=== PATIENT | male | born 1975 | race Caucasian/White ===

== ENCOUNTER 2021-03-16 03:48 | Emergency (ER) | payer SELFPAY ==
[2021-03-16] MEDS ORDERED: Sodium Chloride 0.9% 10 ML Syringe FLUSH PRN (04:00)
[2021-03-16] MEDS ORDERED: Alum Hydrox/Mag Hydrox/Simeth 30 ML, Lidocaine 2% 15 ML PO ONE ×2 (04:00)
[2021-03-16] MEDS ORDERED: Morphine 4 MG/ML Syringe IVPUSH ONE (04:11)
[2021-03-16] MEDS ORDERED: Ondansetron 4 MG/2 ML SDV IVPUSH ONE (04:12)
[2021-03-16] MEDS ORDERED: Sodium Chloride 0.9% 1,000 ML IV ONE (04:12)
[2021-03-16] MEDS ORDERED: Ondansetron 4 MG/2 ML SDV ONE (04:13)
[2021-03-16] MEDS ORDERED: Sodium Chloride 0.9% 1,000 ML ONE (04:13)
[2021-03-16] MEDS ORDERED: Morphine 2 MG/ML SYRINGE ONE (04:17)
[2021-03-16] MEDS ORDERED: Morphine 2 MG/ML SYRINGE IVPUSH ONE (04:18)
--- NOTE | 2021-03-16 04:26 | EDM.PDOC ---
ED HPI GENERAL MEDICAL PROBLEM - General Chief Complaint: General Stated Complaint: ABDOMINAL PAIN Time Seen by Provider: 03/16/21 04:11 Source of Information: Reports: Patient History Limitations: Reports: No Limitations - History of Present Illness INITIAL COMMENTS - FREE TEXT/NARRATIVE: Patient presents with friend for severe epigastric burning abdominal pain started 0200 just a few hours ago. Last bowel movement this previous morning , he has had no vomiting no black stools, no heavy NSAID use, and alcohol use occasionally but no heavy use. Did not eat anything spicey or abnormal to his normal diet. The pain woke him up his deep epigastric "burning" pain radiates to his back. Patient is quite uncomfortable, treatment prior to arrival 2-3 ibuprofen he states. Patient rates his pain severe /10. He is otherwise healthy 45-year-old male with no medical problems and no previous surgeries. Bilateral Upper Abdomen Pain Score (Numeric/FACES): 10 - Related Data Allergies Allergy/AdvReac Type Severity Reaction Status Date / Time No Known Drug Allergies Allergy Other Verified 03/16/21 03:50 Home Meds: Home Meds . [No Known Home Meds] 03/16/21 [History] ED ROS GENERAL - Review of Systems Review Of Systems: See Below Constitutional: Reports: No Symptoms, Diaphoresis. Denies: Fever, Chills HEENT: Reports: No Symptoms Respiratory: Reports: No Symptoms Cardiovascular: Reports: No Symptoms. Denies: Chest Pain, Edema, Syncope Endocrine: Reports: No Symptoms GI/Abdominal: Reports: Abdominal Pain, Nausea. Denies: Constipation, Diarrhea, Hematemesis, Hematochezia, Melena, Vomiting Musculoskeletal: Reports: Back Pain Skin: Reports: No Symptoms Neurological: Reports: No Symptoms Psychiatric: Reports: No Symptoms ED EXAM, GENERAL - Physical Exam Exam: See Below Exam Limited By: No Limitations General Appearance: Moderate Distress Nose: Normal Inspection Throat/Mouth: Normal Lips Head: Atraumatic, Normocephalic Neck: Normal Inspection, Supple Respiratory/Chest: No Respiratory Distress, Lungs Clear, Normal Breath Sounds Cardiovascular: Normal Peripheral Pulses, Regular Rate, Rhythm, No Edema, No Gallop, No JVD, No Murmur. No: Tachycardia Peripheral Pulses: 2+: Radial (L), Radial (R), Posterior Tibial (L), Posterior Tibial (R), Dorsalis Pedis (L), Dorsalis Pedis (R) GI/Abdominal: Normal Bowel Sounds, Soft, No Organomegaly, No Distention, Tender. No: Guarding, Rigid Back Exam: Normal Inspection, Full Range of Motion Extremities: Normal Inspection, Normal Range of Motion, Non-Tender, No Pedal Edema, Normal Capillary Refill. No: Leg Pain Neurological: Alert, Oriented Psychiatric: Normal Affect, Normal Mood Skin Exam: Warm, Intact, No Rash, Diaphoretic. No: Erythema #1 Interpretation EKG Date: 03/16/21 Time: 04:15 Rhythm: NSR Martin: Normal P-Wave: Present QRS: Normal ST-T: Normal QT: Normal EKG Interpretation Comments: artifact in EKG affecting II III and aVF #2 Interpretation EKG Date: 03/16/21 Time: 05:23 Rhythm: NSR Rate (Beats/Min): 50 Martin: Normal P-Wave: Present QRS: Normal ST-T: Normal (sinus bradycarida) QT: Normal Course - Vital Signs Last Recorded V/S: Last Vital Signs Temp 96.0 F L 03/16/21 03:55 Pulse 63 03/16/21 06:58 Resp 18 03/16/21 06:58 BP 175/107 H 03/16/21 06:58 Pulse Ox 99 03/16/21 06:58 - Orders/Labs/Meds Orders: Active Orders 24 hr Category Date Time Status Peripheral IV Care [RC] . DIRECTED Care 03/16/21 04:00 Active Abdomen Pelvis w Cont [CT] Stat Exams 03/16/21 04:20 Ordered Sodium Chloride 0.9% [Saline Flush] Med 03/16/21 04:00 Active 10 ml FLUSH Q8HR PRN Peripheral IV Insertion Adult [OM.PC] Routine Oth 03/16/21 04:00 Ordered EKG 12 Lead [EK] Stat Ther 03/16/21 05:22 Ordered EKG 12 Lead [EK] Urgent Ther 03/16/21 04:00 Ordered Medication Orders Sodium Chloride (Sodium Chloride 0.9% 10 Ml Syringe) 10 ml FLUSH Q8HR PRN PRN Reason: keep vein open Last Admin: 03/16/21 04:51 Dose: 10 ml Documented by: DIMITRIOS Labs: Laboratory Tests 03/16/21 03/16/21 03/16/21 Range/Units 04:10 04:10 04:10 WBC 14.54 H (5.00-10.00) 10^3/uL RBC 5.28 (4.50-6.00) 10^6/uL Hgb 16.3 (13.0-17.0) g/dL Hct 45.6 (40.0-52.0) % MCV 86.4 (82.0-92.0) fL MCH 30.9 (27.0-31.0) pg MCHC 35.7 (32.0-36.0) g/dL RDW 12.3 (11.5-14.5) % Plt Count 257 (150-400) 10^3/uL MPV 11.1 H (7.4-10.4) fL Immature Gran % (Auto) 0.2 (0.0-5.0) % Neut % (Auto) 75.3 H (50.0-70.0) % Lymph % (Auto) 16.8 L (20.0-40.0) % [place] % (Auto) 6.8 (2.0-8.0) % Eos % (Auto) 0.6 L (1.0-3.0) % Baso % (Auto) 0.3 (0.0-1.0) % Neut # (Auto) 10.95 H (2.50-7.00) 10^3/uL Lymph # (Auto) 2.44 (1.00-4.00) 10^3/uL [place] # (Auto) 0.99 H (0.10-0.80) 10^3/uL Eos # (Auto) 0.08 L (0.10-0.30) 10^3/uL Baso # (Auto) 0.05 (0.00-0.10) 10^3/uL Immature Gran # (Auto) 0.03 (0.00-0.50) 10^3/uL Sodium 136 (136-145) mmol/L Potassium 3.6 (3.5-5.1) mmol/L Chloride 101 (98-107) mmol/L Carbon Dioxide 20.5 L (21.0-32.0) mmol/L Anion Gap 18.1 H (5-15) mmol/L BUN 12 (7-18) mg/dL Creatinine 0.96 (0.51-1.17) mg/dL Est Cr Clr Drug Dosing 108.14 mL/min Estimated GFR (MDRD) > 60 mL/min Glucose 152 H (70-140) mg/dL Lactic Acid (0.4-2.0) mmol/L Calcium 9.2 (8.7-10.3) mg/dL Total Bilirubin 0.5 (0.2-1.0) mg/dL AST 20 (15-37) U/L ALT 48 (14-63) U/L Alkaline Phosphatase 87 (46-116) U/L Troponin I High Sens 15.600 (0-76.000) pg/mL C-Reactive Protein < 0.4 (0.0-0.9) mg/dL Total Protein 8.3 H (6.4-8.2) g/dL Albumin 4.53 (3.40-5.00) g/dL Lipase 106 (73-393) U/L Specimen Type Urine Color (YELLOW) Urine Appearance (CLEAR) Urine pH (5.0-9.0) Ur Specific [place] (1.005-1.030) Urine Protein (NEGATIVE) mg/dL Urine Glucose (UA) (NEGATIVE) mg/dL Urine Ketones (NEGATIVE) mg/dL Urine Occult Blood (NEGATIVE) Urine Nitrite (NEGATIVE) Urine Bilirubin (NEGATIVE) Urine Urobilinogen (0.2-1.0) E.U./dL Ur Leukocyte Esterase (NEGATIVE) 03/16/21 03/16/21 03/16/21 Range/Units 04:10 05:00 06:03 WBC (5.00-10.00) 10^3/uL RBC (4.50-6.00) 10^6/uL Hgb (13.0-17.0) g/dL Hct (40.0-52.0) % MCV (82.0-92.0) fL MCH (27.0-31.0) pg MCHC (32.0-36.0) g/dL RDW (11.5-14.5) % Plt Count (150-400) 10^3/uL MPV (7.4-10.4) fL Immature Gran % (Auto) (0.0-5.0) % Neut % (Auto) (50.0-70.0) % Lymph % (Auto) (20.0-40.0) % [place] % (Auto) (2.0-8.0) % Eos % (Auto) (1.0-3.0) % Baso % (Auto) (0.0-1.0) % Neut # (Auto) (2.50-7.00) 10^3/uL Lymph # (Auto) (1.00-4.00) 10^3/uL [place] # (Auto) (0.10-0.80) 10^3/uL Eos # (Auto) (0.10-0.30) 10^3/uL Baso # (Auto) (0.00-0.10) 10^3/uL Immature Gran # (Auto) (0.00-0.50) 10^3/uL Sodium (136-145) mmol/L Potassium (3.5-5.1) mmol/L Chloride (98-107) mmol/L Carbon Dioxide (21.0-32.0) mmol/L Anion Gap (5-15) mmol/L BUN (7-18) mg/dL Creatinine (0.51-1.17) mg/dL Est Cr Clr Drug Dosing mL/min Estimated GFR (MDRD) mL/min Glucose (70-140) mg/dL Lactic Acid 2.1 H (0.4-2.0) mmol/L Calcium (8.7-10.3) mg/dL Total Bilirubin (0.2-1.0) mg/dL AST (15-37) U/L ALT (14-63) U/L Alkaline Phosphatase (46-116) U/L Troponin I High Sens 13.100 (0-76.000) pg/mL C-Reactive Protein (0.0-0.9) mg/dL Total Protein (6.4-8.2) g/dL Albumin (3.40-5.00) g/dL Lipase (73-393) U/L Specimen Type Urinblad Urine Color Yellow (YELLOW) Urine Appearance Clear (CLEAR) Urine pH >= 9.0 (5.0-9.0) Ur Specific [place] 1.020 (1.005-1.030) Urine Protein Negative (NEGATIVE) mg/dL Urine Glucose (UA) Negative (NEGATIVE) mg/dL Urine Ketones 40 H (NEGATIVE) mg/dL Urine Occult Blood Negative (NEGATIVE) Urine Nitrite Negative (NEGATIVE) Urine Bilirubin Negative (NEGATIVE) Urine Urobilinogen 0.2 (0.2-1.0) E.U./dL Ur Leukocyte Esterase Negative (NEGATIVE) Meds: Medications Generic Name Dose Route Start Last Admin Trade Name Dalia PRN Reason Stop Dose Admin Sodium Chloride 10 ml 03/16/21 04:00 03/16/21 04:51 Sodium Chloride 0.9% 10 Ml Syringe FLUSH 10 ml Q8HR PRN Administration keep vein open Discontinued Medications Generic Name Dose Route Start Last Admin Trade Name Dalia PRN Reason Stop Dose Admin Al Hydroxide/Mg Hydroxide 30 0 ml 03/16/21 04:00 03/16/21 04:13 ml/ Lidocaine HCl 15 ml PO 03/16/21 04:01 45 ml ONETIME ONE Administration Hydromorphone HCl 1 mg 03/16/21 04:39 03/16/21 04:41 Hydromorphone 1 Mg/Ml Syringe IVPUSH 03/16/21 04:40 1 mg ONETIME ONE Administration Hydromorphone HCl Confirm 03/16/21 04:40 03/16/21 04:49 Hydromorphone 1 Mg/Ml Syringe Administered 03/16/21 04:41 Not Given Dose 1 mg .ROUTE .STK-MED ONE Hydromorphone HCl 0.5 mg 03/16/21 05:52 03/16/21 05:57 Hydromorphone 1 Mg/Ml Syringe IVPUSH 03/16/21 05:53 0.5 mg ONETIME ONE Administration Sodium Chloride 1,000 mls @ 999 mls/hr 03/16/21 04:12 03/16/21 04:14 Normal Saline IV 03/16/21 05:12 999 mls/hr .BOLUS ONE Administration Sodium Chloride Confirm 03/16/21 04:13 03/16/21 04:19 Normal Saline Administered 03/16/21 04:14 Not Given Dose 1,000 mls @ as directed .ROUTE .STK-MED ONE Morphine Sulfate 4 mg 03/16/21 04:11 03/16/21 04:19 Morphine 4 Mg/Ml Syringe IVPUSH 03/16/21 04:12 Not Given ONETIME ONE Morphine Sulfate 4 mg 03/16/21 04:18 03/16/21 04:18 Morphine 2 Mg/Ml Syringe IVPUSH 03/16/21 04:19 4 mg ONETIME ONE Administration Morphine Sulfate Confirm 03/16/21 04:17 03/16/21 04:19 Morphine 2 Mg/Ml Syringe Administered 03/16/21 04:18 Not Given Dose 4 mg .ROUTE .STK-MED ONE Ondansetron HCl 4 mg 03/16/21 04:12 03/16/21 04:14 Ondansetron 4 Mg/2 Ml Sdv IVPUSH 03/16/21 04:13 4 mg ONETIME ONE Administration Ondansetron HCl Confirm 03/16/21 04:13 03/16/21 04:19 Ondansetron 4 Mg/2 Ml Sdv Administered 03/16/21 04:14 Not Given Dose 4 mg .ROUTE .STK-MED ONE - Re-Assessments/Exams Free Text/Narrative Re-Assessment/Exam: 03/16/21 04:20 Patient is in severe pain labs ordered negative fluids with pain medication such as morphine and nausea prophylactic Zofran and a CT abdomen as well. 0435: Morphine did not help the pain, going to give 1 mg Dilaudid to help with his pain that is severe so he can be comfortable and he can hold still for the CT scan as he moves around morning diaphoretic pale having epigastric burning pain. Lipase came back normal negative troponin. Does have leukocytosis. Rest the labs are pending. 03/16/21 04:57 Labs came back negative LFTs normal renal function. CRP normal as well. Does have slightly lower carbon oxide and elevated anion gap we will add on a lactic acid level. 03/16/21 05:24 Ketones in urine blood glucose 150s slightly elevated lactic acid 2.1. Slightly anion gap as well. Patient states he has been drinking water is recent no dehydration or starvation. Patient occasionally drinks alcohol but no heavy use at all. Patient denies any family history of cardiac problems. Patient has no chest pain his back pain is not there and it has deep epigastric pain. Patient is more comfortable after this dose of 1 mg of Dilaudid. Patient rates pain 2 out of 10. After reviewing the mud piles, he does not fit in the criteria. CT images pending still. He works for [employer] denies any chemical exposure. I did consider organophosphate poisoning. He has noticed since he moved to [place] from [facility] in August to work until this upcoming May he has been sweating more than often while he is here in the back home. Denies any confusion heavy breathing dehydration no nausea vomiting. No frequent urination or increased thirst. No change in vision as well. I also considered AAA dis section mainly on presentation. Patient has equal radial pulses blood pressures both 185/103 178/102 on each arm. There is no change in blood pressure. Normal troponin thus far as well as normal EKG repeated second EKG is artifact in the first 1. Sinus bradycardia no signs of STEMI. 03/16/21 05:33 03/16/21 06:08 Patient's epigastric burning abdominal pain, back to 09/19. 0.5 mg hydromorphone given. 03/16/21 06:51 Patient's pain is gone. Resting comfortably in bed. CT scan essentially negative besides some incidental findings. Patient is going to follow-up with PCP for recheck and further evaluation for evaluation management of the symptoms. he has been htn throughout visit as well. He notes feeling of being sweaty since he came in August from [facility] I wonder if the adrenal adenoma found on the CT has anything to do with his sweating and hypertension. Return precautions discussed with patient low threshold on returning. Patient repeat troponin negative. Patient states he does have history of heartburn over in [facility] however he does not have it when he comes to [place]. We will continue to treat for heartburn with antacids and PPI blockers. 03/16/21 06:55 Departure - Departure Time of Disposition: 06:57 Disposition: DC/Tfer to Medicaid [facility] Condition: Good Clinical Impression: Epigastric pain Acid reflux Qualifiers: Esophagitis presence: without esophagitis Qualified Code(s): K21.9 - Gastro- esophageal reflux disease without esophagitis - Discharge Information *PRESCRIPTION DRUG MONITORING PROGRAM REVIEWED*: No *COPY OF PRESCRIPTION DRUG MONITORING REPORT IN PATIENT TRACY: No Instructions: Food Choices for Gastroesophageal Reflux Disease, Adult, [id number], Abdominal Pain, Adult, Gastroesophageal Reflux Disease, Adult, [id number] Forms: ED Department Discharge Additional Instructions: take omeprazole (Prilosec) 1 tablet 20 mg daily for 1-2 months to help with acid reflux may take tums today as well to help symptoms. call today and schedule follow up appt. Sepsis Event Note (ED) - Focused Exam Vital Signs: Vital Signs Temp Pulse Resp BP BP Pulse Ox 03/16/21 06:58 63 18 175/107 H 99 03/16/21 06:28 55 L 201/117 H 03/16/21 06:05 50 L 18 204/115 H 96 03/16/21 05:24 196/119 H 185/103 H 03/16/21 05:07 57 L 18 178/102 H 90 L 03/16/21 04:50 178/108 H 03/16/21 04:38 70 193/123 H 03/16/21 04:25 186/111 H 03/16/21 04:05 126/101 H 03/16/21 03:55 96.0 F L 67 20 187/119 H 100 - My Orders Last 24 Hours: My Active Orders 03/16/21 04:00 Peripheral IV Care [RC] . DIRECTED Sodium Chloride 0.9% [Saline Flush] 10 ml FLUSH Q8HR PRN Peripheral IV Insertion Adult [OM.PC] Routine EKG 12 Lead [EK] Urgent 03/16/21 04:20 Abdomen Pelvis w Cont [CT] Stat 03/16/21 05:22 EKG 12 Lead [EK] Stat - Assessment/Plan Last 24 Hours: My Active Orders 03/16/21 04:00 Peripheral IV Care [RC] . DIRECTED Sodium Chloride 0.9% [Saline Flush] 10 ml FLUSH Q8HR PRN Peripheral IV Insertion Adult [OM.PC] Routine EKG 12 Lead [EK] Urgent 03/16/21 04:20 Abdomen Pelvis w Cont [CT] Stat 03/16/21 05:22 EKG 12 Lead [EK] Stat
[2021-03-16] MEDS ORDERED: HYDROmorphone 1 MG/ML Syringe IVPUSH ONE ×2 (04:39→05:52)
[2021-03-16] MEDS ORDERED: HYDROmorphone 1 MG/ML Syringe ONE (04:40)
[2021-03-16 04:52] LABS: ANION GAP 18.1 mmol/L (5-15); CHLORIDE,CL 101 mmol/L (98-107); SODIUM,NA 136 mmol/L (136-145)
[2021-03-16 06:58] VITALS: BP 175/107; PULSE 63
--- NOTE | 2021-03-16 07:54 | CT ---
[id number] CT/CT Abdomen Pelvis W IV EXAM: CT Abdomen Pelvis W IV CLINICAL DATA: ABDOMINAL PAIN COMPARISON: No previous similar exam is available. FINDINGS: The liver and spleen are unremarkable. The gallbladder and appendix are unremarkable There is a 3.4 cm right adrenal nodule likely an adenoma Consider follow-up of this finding within the next year with CAT scan The kidneys and adrenals show no abnormality. The aorta and pancreas are within normal limits. There is no bowel distention. There is no bowel wall thickening either. There is no free fluid or free air. There is no adenopathy. The pelvis shows no mass, free fluid, abscess, inflammatory change, or adenopathy. IMPRESSION: NO ACUTE PROCESS. Shekhar Diego MD 03/16/21 0754 Thank you for allowing us to participate in the care of your patient.
[2021-03-16] MEDS ORDERED: Iopamidol 755 Mg/ML 75 ML Bottle IVPUSH ONE (09:21)
[2021-03-16] MEDS ORDERED: Sodium Chloride 0.9% 50 ML IV SCH (09:30)
== END 2021-03-16 07:45 ==
LOC: KA.ED 03:48
DX: K21.9 Gastro-esophageal reflux disease without esophagitis (principal)
CPT/HCPCS: 36415; 74177; 80053; 81003; 83605; 83690; 84484; 85025; 86140; 93005; 96374; 96375; 96376; 99285-25; A9270-GY; J1170; J2270; J2405; J7030; Q9967

== ENCOUNTER 2021-03-16 14:08 | Observation (INO) | payer SELFPAY ==
[2021-03-16] MEDS ORDERED: Labetalol 100 MG/20 ML MDV IVPUSH ONE ×5 (14:14→16:40)
--- NOTE | 2021-03-16 14:26 | EDM.PDOC ---
ED HPI GENERAL MEDICAL PROBLEM - General Stated Complaint: HIGH BLOOD PRESSURE Time Seen by Provider: 03/16/21 14:13 Source of Information: Reports: Patient History Limitations: Reports: No Limitations - History of Present Illness INITIAL COMMENTS - FREE TEXT/NARRATIVE: Patient presents from [facility] for hypertension. He was referred there for close follow-up and evaluation management of his symptoms. Patient was seen by myself early this morning had a full work-up with labs and CT scan. They did not feel comfortable evaluating patient in clinic due to his blood pressure. Patient did have high blood pressure 180s over 110 with a heart rate of 60 while in the emergency room. However he had no signs/ symptoms of hypertensive urgency or emergency while in the ER. Patient does not have primary care yet he is from [place] which is [facility] and is here untill May. He never goes to Dr. Whittington exactly when his last time he has had his blood pressure checked. Patient's abdominal pain is improved and is 1 out of 10 very little at all he states. Patient has no chest pain no sweating no headache no shortness of breath no symptoms at all. His labs showed slight elevation his white count of 14,000 with a lactic acid of 2.1 ketones in his urine slight elevated anion gap although not in the also essentially negative. Patient is not around any chemical/insecticides. I considered all the mudpiles at his last visit. he has been working as a harvester harvesting potatoes. Occasionally drinks alcohol but nothing excessive or recent. No heavy use of NSAIDs either. Nondiabetic glucose slightly elevated 150s. He does have elevated lactic acid. Upper Abdominal Pain Score (Numeric/FACES): 3 - Related Data Allergies Allergy/AdvReac Type Severity Reaction Status Date / Time No Known Drug Allergies Allergy Other Verified 03/16/21 03:50 Home Meds: Home Meds . [No Known Home Meds] 03/16/21 [History] Past Medical History - Past Health History Medical/Surgical History: Denies Medical/Surgical History - Infectious Disease History Infectious Disease History: Reports: None Social & Family History - Caffeine Use Caffeine Use: Reports: Coffee ED ROS GENERAL - Review of Systems Review Of Systems: See Below Constitutional: Reports: No Symptoms HEENT: Reports: No Symptoms Respiratory: Reports: No Symptoms Cardiovascular: Reports: Other (asymptomatic HTN ) GI/Abdominal: Reports: Abdominal Pain, Other (very mild 1/10 epigastric discomfort). Denies: Black Stool, Bloody Stool, Constipation, Diarrhea, Difficulty Swallowing, Hematochezia, Melena, Nausea, Vomiting : Reports: No Symptoms Musculoskeletal: Reports: No Symptoms. Denies: Back Pain Skin: Reports: No Symptoms Neurological: Reports: No Symptoms Psychiatric: Reports: No Symptoms ED EXAM, GENERAL - Physical Exam Exam: See Below Exam Limited By: No Limitations General Appearance: Alert, WD/WN, No Apparent Distress Throat/Mouth: Normal Inspection, Normal Lips, Normal Oropharynx Respiratory/Chest: No Respiratory Distress, Lungs Clear, Normal Breath Sounds, No Accessory Muscle Use, Chest Non-Tender Cardiovascular: Normal Peripheral Pulses, Regular Rate, Rhythm, No Edema, No Gallop, No JVD, No Murmur Peripheral Pulses: 2+: Radial (L), Radial (R), Posterior Tibial (L), Posterior Tibial (R), Dorsalis Pedis (L), Dorsalis Pedis (R) GI/Abdominal: Normal Bowel Sounds, Soft, Non-Tender, No Organomegaly, No Distention, No Abnormal Bruit, No Mass. No: Distended, Guarding, Rigid Back Exam: Normal Inspection, Full Range of Motion Extremities: Normal Inspection, Normal Range of Motion, Non-Tender, No Pedal Edema Neurological: Alert, Oriented, Normal Cognition, Normal Gait Psychiatric: Normal Affect, Normal Mood Skin Exam: Warm, Dry, Intact Course - Vital Signs Last Recorded V/S: Last Vital Signs Temp 97.4 F 03/16/21 14:29 Pulse 86 03/16/21 16:47 Resp 22 H 03/16/21 16:44 BP 140/89 03/16/21 16:47 Pulse Ox 97 03/16/21 16:44 - Orders/Labs/Meds Orders: Active Orders 24 hr Category Date Time Status Admission Status [Patient Status] [ADT] Routine ADT 03/16/21 16:51 Active Cardiac Monitoring [RC] . DIRECTED Care 03/16/21 16:51 Active CORONAVIRUS COVID-19 RAPID [MOLEC] Stat Lab 03/16/21 16:50 Ordered CULTURE BLOOD [BC] Stat Lab 03/16/21 14:58 Received CULTURE BLOOD [BC] Stat Lab 03/16/21 15:25 Received PROCALCITONIN [REF] Stat Lab 03/16/21 15:38 Ordered Blood Culture x2 Reflex Set [OM.PC] Stat Ot 03/16/21 14:49 Ordered Labs: Laboratory Tests 03/16/21 03/16/21 03/16/21 Range/Units 14:12 14:12 14:12 WBC 22.04 H (5.00-10.00) 10^3/uL RBC 5.57 (4.50-6.00) 10^6/uL Hgb 16.8 (13.0-17.0) g/dL Hct 48.3 (40.0-52.0) % MCV 86.7 (82.0-92.0) fL MCH 30.2 (27.0-31.0) pg MCHC 34.8 (32.0-36.0) g/dL RDW 12.0 (11.5-14.5) % Plt Count 309 (150-400) 10^3/uL MPV 11.3 H (7.4-10.4) fL Immature Gran % (Auto) 0.4 (0.0-5.0) % Neut % (Auto) 85.0 H (50.0-70.0) % Lymph % (Auto) 6.8 L (20.0-40.0) % [place] % (Auto) 7.7 (2.0-8.0) % Eos % (Auto) 0.0 L (1.0-3.0) % Baso % (Auto) 0.1 (0.0-1.0) % Neut # (Auto) 18.75 H (2.50-7.00) 10^3/uL Lymph # (Auto) 1.49 (1.00-4.00) 10^3/uL [place] # (Auto) 1.69 H (0.10-0.80) 10^3/uL Eos # (Auto) 0.00 L (0.10-0.30) 10^3/uL Baso # (Auto) 0.03 (0.00-0.10) 10^3/uL Immature Gran # (Auto) 0.08 (0.00-0.50) 10^3/uL Sodium 135 L (136-145) mmol/L Potassium 3.9 (3.5-5.1) mmol/L Chloride 99 (98-107) mmol/L Carbon Dioxide 21.6 (21.0-32.0) mmol/L Anion Gap 18.3 H (5-15) mmol/L BUN 11 (7-18) mg/dL Creatinine 1.08 (0.51-1.17) mg/dL Est Cr Clr Drug Dosing 96.59 mL/min Estimated GFR (MDRD) > 60 mL/min Glucose 261 H (70-140) mg/dL Hemoglobin A1c (4.3-5.7) % Lactic Acid (0.4-2.0) mmol/L Calcium 8.6 L (8.7-10.3) mg/dL Total Bilirubin 0.7 (0.2-1.0) mg/dL AST 18 (15-37) U/L ALT 50 (14-63) U/L Alkaline Phosphatase 94 (46-116) U/L Troponin I High Sens 54.800 (0-76.000) pg/mL B-Natriuretic Peptide 48 (0-100) pg/mL Total Protein 8.7 H (6.4-8.2) g/dL Albumin 4.64 (3.40-5.00) g/dL Lipase 264 (73-393) U/L TSH, Ultra Sensitive (0.340-4.820) uIU/mL 03/16/21 03/16/21 03/16/21 Range/Units 14:12 14:58 15:12 WBC (5.00-10.00) 10^3/uL RBC (4.50-6.00) 10^6/uL Hgb (13.0-17.0) g/dL Hct (40.0-52.0) % MCV (82.0-92.0) fL MCH (27.0-31.0) pg MCHC (32.0-36.0) g/dL RDW (11.5-14.5) % Plt Count (150-400) 10^3/uL MPV (7.4-10.4) fL Immature Gran % (Auto) (0.0-5.0) % Neut % (Auto) (50.0-70.0) % Lymph % (Auto) (20.0-40.0) % [place] % (Auto) (2.0-8.0) % Eos % (Auto) (1.0-3.0) % Baso % (Auto) (0.0-1.0) % Neut # (Auto) (2.50-7.00) 10^3/uL Lymph # (Auto) (1.00-4.00) 10^3/uL [place] # (Auto) (0.10-0.80) 10^3/uL Eos # (Auto) (0.10-0.30) 10^3/uL Baso # (Auto) (0.00-0.10) 10^3/uL Immature Gran # (Auto) (0.00-0.50) 10^3/uL Sodium (136-145) mmol/L Potassium (3.5-5.1) mmol/L Chloride (98-107) mmol/L Carbon Dioxide (21.0-32.0) mmol/L Anion Gap (5-15) mmol/L BUN (7-18) mg/dL Creatinine (0.51-1.17) mg/dL Est Cr Clr Drug Dosing mL/min Estimated GFR (MDRD) mL/min Glucose (70-140) mg/dL Hemoglobin A1c 5.5 (4.3-5.7) % Lactic Acid 4.8 H (0.4-2.0) mmol/L Calcium (8.7-10.3) mg/dL Total Bilirubin (0.2-1.0) mg/dL AST (15-37) U/L ALT (14-63) U/L Alkaline Phosphatase (46-116) U/L Troponin I High Sens (0-76.000) pg/mL B-Natriuretic Peptide (0-100) pg/mL Total Protein (6.4-8.2) g/dL Albumin (3.40-5.00) g/dL Lipase (73-393) U/L TSH, Ultra Sensitive 0.885 (0.340-4.820) uIU/mL Meds: Medications Discontinued Medications Generic Name Dose Route Start Last Admin Trade Name Freq PRN Reason Stop Dose Admin Hydralazine HCl 10 mg 03/16/21 14:48 03/16/21 14:52 Hydralazine 20 Mg/Ml Sdv IVPUSH 03/16/21 14:49 10 mg ONETIME ONE Administration Sodium Chloride 1,000 mls @ 999 mls/hr 03/16/21 15:33 03/16/21 15:38 Normal Saline IV 03/16/21 16:33 999 mls/hr .BOLUS ONE Administration Labetalol HCl 20 mg 03/16/21 14:14 03/16/21 14:28 Labetalol 100 Mg/20 Ml Mdv IVPUSH 03/16/21 14:15 20 mg ONETIME ONE Administration Protocol Labetalol HCl 20 mg 03/16/21 15:33 03/16/21 15:39 Labetalol 100 Mg/20 Ml Mdv IVPUSH 03/16/21 15:34 20 mg ONETIME ONE Administration Protocol Labetalol HCl 20 mg 03/16/21 15:49 03/16/21 16:04 Labetalol 100 Mg/20 Ml Mdv IVPUSH 03/16/21 15:50 20 mg ONETIME ONE Administration Protocol Labetalol HCl 20 mg 03/16/21 16:19 03/16/21 16:41 Labetalol 100 Mg/20 Ml Mdv IVPUSH 03/16/21 16:20 20 mg ONETIME ONE Administration Protocol Labetalol HCl 20 mg 03/16/21 16:40 Labetalol 100 Mg/20 Ml Mdv IVPUSH 03/16/21 16:41 ONETIME ONE Protocol - Re-Assessments/Exams Free Text/Narrative Re-Assessment/Exam: 03/16/21 14:26 CT scan of the abdomen did show incidental finding of a 3.4 cm right adrenal nodule which the radiologist said most likely adrenal adenoma. I did consider pheochromocytoma however the patient has never been tachycardic and throughout the ER visit early this morning. He was a little tachy on arrival now but the patient states he was anxious with everything going on, after I reassured the patient and talked with him for a while his heart rate came back down to 70s to 90s. He could be having is called primary hyperaldosteronism which is cause hypertension. Patient has normal renal function normal liver function we will repeat some labs patient is asymptomatic this time. Patient will be given 20 mg slow IV push labetalol to help bring his blood pressure down slowly. He is in continuous telemetry and blood pressure checks every 15 minutes. I did reach out to Dr. Stephanie Pearl for consult as well. 03/16/21 15:00 Blood pressure did not come down with IV labetalol heart rate 62 blood pressure 226/126. Going to give hydralazine 10 mg IV push slow. Prescription called in for hydralazine 10 mg 3 times a day for 1 week. Call the clinic got him an appointment to follow-up as well. Patient has no symptoms at all comfortable no chest pain no abdominal pain no shortness of breath no sweating headache. His white count did come back elevated 22,000 no fever viral-like symptoms. No Covid concerns. Patient got blood cultures drawn x2 to rule out infection. Troponin came back normal his LFTs kidney electrolytes essentially negative. His glucose did come back to 262 last meal was at 1130 this morning. We will add A1c and chest xray due to WBC count. 03/16/21 15:10 Was able him to schedule an appointment at 9:[address] Alejandro Lopez internal medicine. 03/16/21 16:02 Blood pressure does not improve with the second dose of labetalol going to give a third consulted the on-call PCP Dr. Ervin Montilla. Going to add a thyroid level continue to monitor blood pressure closely patient will be admitted or transferred due to his labs white count his lactic acid level 4.6 given him a second bag of fluids not bolus them in. Also added procalcitonin. And BNP. Patient negative continue telemetry blood pressure is 199/123 pulse 64 SpO2 97 respirations 30. Patient has no symptoms at this time. No dizziness chest pain short of breath sweaty headache abdominal pain. Patient did get up and go to the bathroom and voided. 03/16/21 16:37 Blood pressure continue to be 176/113 heart rate 72 SPO2 97% respirations 28. Patient is resting comfortably in bed with no symptoms. Repeat dose of labetalol 20 mg. Patient has total of 800 mg. Waiting on TSH and patient be admitted here or transferred depending on on blood pressure control and lab work. his bp is trending down slowly. 03/16/21 16:41 The nurse was going to give the extra 20 mg labetalol held his blood pressure dropped to 140/89 pulse 82. 20 mg has been held the patient has total of 80 mg at this time. TSH normal BNP pending did consult on-call Dr. Carole Montilla , she is going to admit the patient observation. Patient asymptomatic patient agreed to be admitted as well. 03/16/21 16:49 Departure - Departure Time of Disposition: 16:50 Disposition: Refer to Observation Condition: Good Clinical Impression: Lactic acid acidosis HTN (hypertension) Qualifiers: Hypertension type: unspecified Qualified Code(s): I10 - Essential (primary) hypertension Leukocytosis Qualifiers: Leukocytosis type: unspecified Qualified Code(s): D72.829 - Elevated white blood cell count, unspecified Referrals: Stephanie Su MD [Primary Care Provider] - Additional Instructions: appointment at 9:[address] Alejandro Lopez internal medicine in [facility]. Sepsis Event Note (ED) - Focused Exam Vital Signs: Vital Signs Temp Pulse Resp BP Pulse Ox 03/16/21 16:47 86 140/89 03/16/21 16:44 92 22 H 164/104 H 97 03/16/21 16:07 81 25 H 199/123 H 97 03/16/21 15:44 85 18 231/126 H 96 03/16/21 15:00 61 216/121 H 03/16/21 14:55 61 18 226/126 H 98 03/16/21 14:30 68 22 H 168/112 H 94 L 03/16/21 14:29 97.4 F 70 18 194/112 H 98 03/16/21 14:15 92 20 189/112 H 97 - My Orders Last 24 Hours: My Active Orders 03/16/21 14:49 Blood Culture x2 Reflex Set [OM.PC] Stat 03/16/21 14:58 CULTURE BLOOD [BC] Stat 03/16/21 15:25 CULTURE BLOOD [BC] Stat 03/16/21 15:38 PROCALCITONIN [REF] Stat 03/16/21 16:50 CORONAVIRUS COVID-19 RAPID [MOLEC] Stat 03/16/21 16:51 Admission Status [Patient Status] [ADT] Routine Cardiac Monitoring [RC] . DIRECTED - Assessment/Plan Last 24 Hours: My Active Orders 03/16/21 14:49 Blood Culture x2 Reflex Set [OM.PC] Stat 03/16/21 14:58 CULTURE BLOOD [BC] Stat 03/16/21 15:25 CULTURE BLOOD [BC] Stat 03/16/21 15:38 PROCALCITONIN [REF] Stat 03/16/21 16:50 CORONAVIRUS COVID-19 RAPID [MOLEC] Stat 03/16/21 16:51 Admission Status [Patient Status] [ADT] Routine Cardiac Monitoring [RC] . DIRECTED
[2021-03-16 14:47] LABS: ANION GAP 18.3 mmol/L (5-15); CHLORIDE,CL 99 mmol/L (98-107); SODIUM,NA 135 mmol/L (136-145)
[2021-03-16] MEDS ORDERED: hydrALAZINE 20 MG/ML SDV IVPUSH ONE (14:48)
[2021-03-16 15:19] LABS: HEMOGLOBIN A1C 5.5 % (4.3-5.7)
[2021-03-16] MEDS ORDERED: Sodium Chloride 0.9% 1,000 ML IV ONE (15:33)
--- NOTE | 2021-03-16 15:37 | CR ---
[id number] RAD/RAD Chest PA And Lateral EXAM: FRONTAL AND LATERAL CHEST INDICATION: HTN, ELEVATED WBC. COMPARISON: None. DISCUSSION: The heart and lungs are normal in appearance. IMPRESSION: 1. Negative exam. Ramiro Albarado MD 03/16/21 [id number] Thank you for allowing us to participate in the care of your patient.
[2021-03-16] MEDS ORDERED: Sodium Chloride 0.9% 1,000 ML IV SCH (18:00)
[2021-03-16] MEDS: Acetaminophen 325 MG Tab PO PRN (22:32)
[2021-03-17 07:59] LABS: ANION GAP 15.2 mmol/L (5-15); CHLORIDE,CL 103 mmol/L (98-107); SODIUM,NA 136 mmol/L (136-145)
[2021-03-17] MEDS ORDERED: Benazepril 10 MG Tab PO ONE (09:47)
[2021-03-17] MEDS ORDERED: amLODIPine 2.5 MG Tab PO ONE (09:47)
--- NOTE | 2021-03-17 10:52 | PCM.HP.2 ---
H&P History of Present Illness - General Date of Service: 03/17/21 Admit Problem/Dx: Admission Diagnosis/Problem Admission Diagnosis/Problem HTN, Essential hypertension Upper Abdominal Pain Score (Numeric/FACES): 0 - Related Data Allergies/Adverse Reactions: Allergies Allergy/AdvReac Type Severity Reaction Status Date / Time No Known Drug Allergies Allergy Other Verified 03/16/21 03:50 Home Medications: Home Meds amLODIPine Besylate/Benazepril [Amlodipine-Benazepril 2.5-10] 1 each PO DAILY #30 capsule 03/17/21 [Rx] Past Medical History - Past Health History Medical/Surgical History: Denies Medical/Surgical History - Infectious Disease History Infectious Disease History: Reports: None Social & Family History - Tobacco Use Tobacco Use Status *Q: Never Tobacco User - Caffeine Use Caffeine Use: Reports: Coffee - Recreational Drug Use Recreational Drug Use: No H&P Review of Systems - Review of Systems: Review Of Systems: See Below General: Reports: Fatigue. Denies: Fever, Chills HEENT: Reports: Headaches (intermittent) Pulmonary: Reports: No Symptoms Cardiovascular: Reports: No Symptoms Gastrointestinal: Reports: Abdominal Pain (now improved) Genitourinary: Reports: No Symptoms Musculoskeletal: Reports: No Symptoms Skin: Reports: No Symptoms Psychiatric: Reports: No Symptoms Neurological: Reports: No Symptoms Exam - Exam Exam: See Below - Vital Signs Vital Signs: Last Vital Signs Temp 98.3 F 03/17/21 07:00 Pulse 83 03/17/21 07:00 Resp 24 H 03/17/21 07:00 BP 157/94 H 03/17/21 07:00 Pulse Ox 96 03/17/21 07:00 Weight: 219 lb - Exam Quality Assessment: No: Supplemental Oxygen, Urinary Catheter General: Alert, Oriented, Cooperative. No: Mild Distress HEENT: Conjunctiva Clear, Mucosa Moist & [place], Pupils Equal Neck: Supple, Trachea Midline Lungs: Clear to Auscultation, Normal Respiratory Effort. No: Crackles, Rhonchi, Wheezing Cardiovascular: Regular Rate, Regular Rhythm. No: Systolic Murmur GI/Abdominal Exam: Normal Bowel Sounds, Soft, Non-Tender, No Distention (Male) Exam: Deferred Rectal (Males) Exam: Deferred Back Exam: Normal Inspection, Full Range of Motion Extremities: Normal Inspection, Normal Range of Motion, Non-Tender, No Pedal Edema, Normal Capillary Refill Peripheral Pulses: 2+: Popliteal (R), Posterior Tibial (L) Skin: Warm, Dry, Intact Neurological: Normal Gait, Normal Speech Neuro Extensive - Mental Status: Alert, Oriented x3, Normal Mood/Affect, Normal Cognition, Memory Intact Neuro Extensive - Motor, Sensory, Reflexes: CN II-XII Intact Psychiatric: Alert, Normal Affect, Normal Mood - Patient Data Lab Results Last 24 hrs: Laboratory Results - last 24 hr 03/16/21 03/16/21 03/16/21 Range/Units 14:00 14:12 14:12 WBC 22.04 H (5.00-10.00) 10^3/uL RBC 5.57 (4.50-6.00) 10^6/uL Hgb 16.8 (13.0-17.0) g/dL Hct 48.3 (40.0-52.0) % MCV 86.7 (82.0-92.0) fL MCH 30.2 (27.0-31.0) pg MCHC 34.8 (32.0-36.0) g/dL RDW 12.0 (11.5-14.5) % Plt Count 309 (150-400) 10^3/uL MPV 11.3 H (7.4-10.4) fL Immature Gran % (Auto) 0.4 (0.0-5.0) % Neut % (Auto) 85.0 H (50.0-70.0) % Lymph % (Auto) 6.8 L (20.0-40.0) % [place] % (Auto) 7.7 (2.0-8.0) % Eos % (Auto) 0.0 L (1.0-3.0) % Baso % (Auto) 0.1 (0.0-1.0) % Neut # (Auto) 18.75 H (2.50-7.00) 10^3/uL Lymph # (Auto) 1.49 (1.00-4.00) 10^3/uL [place] # (Auto) 1.69 H (0.10-0.80) 10^3/uL Eos # (Auto) 0.00 L (0.10-0.30) 10^3/uL Baso # (Auto) 0.03 (0.00-0.10) 10^3/uL Immature Gran # (Auto) 0.08 (0.00-0.50) 10^3/uL Sodium 135 L (136-145) mmol/L Potassium 3.9 (3.5-5.1) mmol/L Chloride 99 (98-107) mmol/L Carbon Dioxide 21.6 (21.0-32.0) mmol/L Anion Gap 18.3 H (5-15) mmol/L BUN 11 (7-18) mg/dL Creatinine 1.08 (0.51-1.17) mg/dL Est Cr Clr Drug Dosing 96.59 mL/min Estimated GFR (MDRD) > 60 mL/min Glucose 261 H (70-140) mg/dL Hemoglobin A1c (4.3-5.7) % Lactic Acid (0.4-2.0) mmol/L Calcium 8.6 L (8.7-10.3) mg/dL Total Bilirubin 0.7 (0.2-1.0) mg/dL AST 18 (15-37) U/L ALT 50 (14-63) U/L Alkaline Phosphatase 94 (46-116) U/L Troponin I High Sens 54.800 (0-76.000) pg/mL C-Reactive Protein 1.6 H (0.0-0.9) mg/dL B-Natriuretic Peptide (0-100) pg/mL Total Protein 8.7 H (6.4-8.2) g/dL Albumin 4.64 (3.40-5.00) g/dL Lipase 264 (73-393) U/L TSH, Ultra Sensitive (0.340-4.820) uIU/mL SARS CoV-2 RNA Rapid BOBBI (NEGATIVE) 03/16/21 03/16/21 03/16/21 Range/Units 14:12 14:12 14:58 WBC (5.00-10.00) 10^3/uL RBC (4.50-6.00) 10^6/uL Hgb (13.0-17.0) g/dL Hct (40.0-52.0) % MCV (82.0-92.0) fL MCH (27.0-31.0) pg MCHC (32.0-36.0) g/dL RDW (11.5-14.5) % Plt Count (150-400) 10^3/uL MPV (7.4-10.4) fL Immature Gran % (Auto) (0.0-5.0) % Neut % (Auto) (50.0-70.0) % Lymph % (Auto) (20.0-40.0) % [place] % (Auto) (2.0-8.0) % Eos % (Auto) (1.0-3.0) % Baso % (Auto) (0.0-1.0) % Neut # (Auto) (2.50-7.00) 10^3/uL Lymph # (Auto) (1.00-4.00) 10^3/uL [place] # (Auto) (0.10-0.80) 10^3/uL Eos # (Auto) (0.10-0.30) 10^3/uL Baso # (Auto) (0.00-0.10) 10^3/uL Immature Gran # (Auto) (0.00-0.50) 10^3/uL Sodium (136-145) mmol/L Potassium (3.5-5.1) mmol/L Chloride (98-107) mmol/L Carbon Dioxide (21.0-32.0) mmol/L Anion Gap (5-15) mmol/L BUN (7-18) mg/dL Creatinine (0.51-1.17) mg/dL Est Cr Clr Drug Dosing mL/min Estimated GFR (MDRD) mL/min Glucose (70-140) mg/dL Hemoglobin A1c (4.3-5.7) % Lactic Acid 4.8 H (0.4-2.0) mmol/L Calcium (8.7-10.3) mg/dL Total Bilirubin (0.2-1.0) mg/dL AST (15-37) U/L ALT (14-63) U/L Alkaline Phosphatase (46-116) U/L Troponin I High Sens (0-76.000) pg/mL C-Reactive Protein (0.0-0.9) mg/dL B-Natriuretic Peptide 48 (0-100) pg/mL Total Protein (6.4-8.2) g/dL Albumin (3.40-5.00) g/dL Lipase (73-393) U/L TSH, Ultra Sensitive 0.885 (0.340-4.820) uIU/mL SARS CoV-2 RNA Rapid BOBBI (NEGATIVE) 03/16/21 03/16/21 03/16/21 Range/Units 15:12 16:35 19:00 WBC (5.00-10.00) 10^3/uL RBC (4.50-6.00) 10^6/uL Hgb (13.0-17.0) g/dL Hct (40.0-52.0) % MCV (82.0-92.0) fL MCH (27.0-31.0) pg MCHC (32.0-36.0) g/dL RDW (11.5-14.5) % Plt Count (150-400) 10^3/uL MPV (7.4-10.4) fL Immature Gran % (Auto) (0.0-5.0) % Neut % (Auto) (50.0-70.0) % Lymph % (Auto) (20.0-40.0) % [place] % (Auto) (2.0-8.0) % Eos % (Auto) (1.0-3.0) % Baso % (Auto) (0.0-1.0) % Neut # (Auto) (2.50-7.00) 10^3/uL Lymph # (Auto) (1.00-4.00) 10^3/uL [place] # (Auto) (0.10-0.80) 10^3/uL Eos # (Auto) (0.10-0.30) 10^3/uL Baso # (Auto) (0.00-0.10) 10^3/uL Immature Gran # (Auto) (0.00-0.50) 10^3/uL Sodium (136-145) mmol/L Potassium (3.5-5.1) mmol/L Chloride (98-107) mmol/L Carbon Dioxide (21.0-32.0) mmol/L Anion Gap (5-15) mmol/L BUN (7-18) mg/dL Creatinine (0.51-1.17) mg/dL Est Cr Clr Drug Dosing mL/min Estimated GFR (MDRD) mL/min Glucose (70-140) mg/dL Hemoglobin A1c 5.5 (4.3-5.7) % Lactic Acid 1.8 (0.4-2.0) mmol/L Calcium (8.7-10.3) mg/dL Total Bilirubin (0.2-1.0) mg/dL AST (15-37) U/L ALT (14-63) U/L Alkaline Phosphatase (46-116) U/L Troponin I High Sens (0-76.000) pg/mL C-Reactive Protein (0.0-0.9) mg/dL B-Natriuretic Peptide (0-100) pg/mL Total Protein (6.4-8.2) g/dL Albumin (3.40-5.00) g/dL Lipase (73-393) U/L TSH, Ultra Sensitive (0.340-4.820) uIU/mL SARS CoV-2 RNA Rapid BOBBI Negative (NEGATIVE) 03/17/21 03/17/21 Range/Units 07:20 07:20 WBC 18.52 H (5.00-10.00) 10^3/uL RBC 5.31 (4.50-6.00) 10^6/uL Hgb 16.1 (13.0-17.0) g/dL Hct 47.2 (40.0-52.0) % MCV 88.9 (82.0-92.0) fL MCH 30.3 (27.0-31.0) pg MCHC 34.1 (32.0-36.0) g/dL RDW 12.5 (11.5-14.5) % Plt Count 224 D (150-400) 10^3/uL MPV 11.5 H (7.4-10.4) fL Immature Gran % (Auto) 0.3 (0.0-5.0) % Neut % (Auto) 78.9 H (50.0-70.0) % Lymph % (Auto) 11.2 L (20.0-40.0) % [place] % (Auto) 9.2 H (2.0-8.0) % Eos % (Auto) 0.2 L (1.0-3.0) % Baso % (Auto) 0.2 (0.0-1.0) % Neut # (Auto) 14.62 H (2.50-7.00) 10^3/uL Lymph # (Auto) 2.07 (1.00-4.00) 10^3/uL [place] # (Auto) 1.71 H (0.10-0.80) 10^3/uL Eos # (Auto) 0.03 L (0.10-0.30) 10^3/uL Baso # (Auto) 0.04 (0.00-0.10) 10^3/uL Immature Gran # (Auto) 0.05 (0.00-0.50) 10^3/uL Sodium 136 (136-145) mmol/L Potassium 4.2 (3.5-5.1) mmol/L Chloride 103 (98-107) mmol/L Carbon Dioxide 22.0 (21.0-32.0) mmol/L Anion Gap 15.2 H (5-15) mmol/L BUN 12 (7-18) mg/dL Creatinine 0.75 (0.51-1.17) mg/dL Est Cr Clr Drug Dosing 143.09 mL/min Estimated GFR (MDRD) > 60 mL/min Glucose 150 H (70-140) mg/dL Hemoglobin A1c (4.3-5.7) % Lactic Acid (0.4-2.0) mmol/L Calcium 8.5 L (8.7-10.3) mg/dL Total Bilirubin (0.2-1.0) mg/dL AST (15-37) U/L ALT (14-63) U/L Alkaline Phosphatase (46-116) U/L Troponin I High Sens (0-76.000) pg/mL C-Reactive Protein (0.0-0.9) mg/dL B-Natriuretic Peptide (0-100) pg/mL Total Protein (6.4-8.2) g/dL Albumin (3.40-5.00) g/dL Lipase (73-393) U/L TSH, Ultra Sensitive (0.340-4.820) uIU/mL SARS CoV-2 RNA Rapid BOBBI (NEGATIVE) Result Diagrams: 03/17/21 07:20 03/17/21 07:20 Sepsis Event Note - Evaluation Sepsis Screening Result: No Definite Risk - Focused Exam Vital Signs: Vital Signs Temp Temp Pulse Resp BP Pulse Ox 03/17/21 07:00 98.3 F 83 24 H 157/94 H 96 03/17/21 03:00 98.7 F 77 20 149/93 H 95 03/16/21 23:02 99 F Problem List Initiated/Reviewed/Updated: Yes Orders Last 24hrs: Active Orders 24 hr Category Date Time Status Admission Status [Patient Status] [ADT] Routine ADT 03/16/21 16:51 Active Cardiac Monitoring [RC] 03,07,11,15,19,23 Care 03/16/21 16:51 Active Communication Order [RC] ONETIME Care 03/16/21 23:00 Active Oxygen Therapy [RC] .PRN Care 03/16/21 17:52 Active Up ad Lori [RC] ASDIRECTED Care 03/16/21 17:52 Active VTE/DVT Education [RC] DAILY Care 03/16/21 17:52 Active Vital Signs [RC] 07,11,15,19,23,03 Care 03/16/21 17:52 Active Regular Diet [DIET] Diet 03/16/21 Dinner Active ALDOSTERONE [REF] Routine Lab 03/16/21 17:55 Ordered CULTURE BLOOD [BC] Stat Lab 03/16/21 14:58 Received CULTURE BLOOD [BC] Stat Lab 03/16/21 15:25 Received PROCALCITONIN [REF] Stat Lab 03/16/21 15:38 Ordered RENIN ACTIVITY, PLASMA [REF] Routine Lab 03/16/21 17:55 Ordered Acetaminophen [TylenoL] Med 03/16/21 22:21 Active 650 mg PO Q4H PRN Blood Culture x2 Reflex Set [OM.PC] Stat Oth 03/16/21 14:49 Ordered Resuscitation Status Routine Resus Stat 03/16/21 17:52 Ordered Medication Orders Acetaminophen (Acetaminophen 325 Mg Tab) 650 mg PO Q4H PRN PRN Reason: Fever Last Admin: 03/16/21 22:32 Dose: 650 mg Documented by: ISAIAS Assessment/Plan Comment:: HPI summary: ED course: Hospital course: 03/17/21: Patient reports he is tired this morning and has an intermittent headache. He denies any sore throat, cough, fever, chills, urinary symptoms. No apparent indication of any infectious process to determine etiology of elevated WBC and lactic acid in ER. Hospitalization problems and plan: # Accelerated hypertension # Adrenal adenoma - per abdominal CT findings - send out labs pending to evaluate for possible secreting adenoma - BP 157/94 this morning - Start amlodipine 2.5mg PO daily - Start benazepril 10mg PO daily # Leukocytosis - WBC 22K in ER, decreased to 18.52 (Neutrophils 78.9%), # Lactic acidosis - Initial result of 4.8 in ER, repeat 1.8 after four hours - Chronic, stable conditions: # Hospitalization details: # FEN: Oral fluids, electrolytes stable, regular diet # PPX: None # Code status:FULL CODE # Emergency contact: # Disposition: Patient to discharge home today per self care. Will continue dual therapy oral medication of amlodipine 2.5mg/benazepril 10mg PO daily.
--- NOTE | 2021-03-17 10:53 | PCM.DCSUM1 ---
Discharge Summary - Hospital Course Free Text/Narrative:: Date of admission: 03/16/21 Date of discharge: 03/17/21 Admission diagnoses: # Accelerated HTN # Lactic acidosis Discharge diagnoses: Hospital course: 03/17/21: Discharge and follow-up recommendations: - Discharge to home per self care - New medications at discharge: Amlodipine 2.5mg/benazepril 10mg PO daily - Follow-up on Monday03/19/21 at 2:00 with Suma Doshi APRN, CNP at [facility] - Discharge Data Discharge Date: 03/17/21 Discharge Disposition: Home, Self-Care 01 Condition: Good - Referral to Home Health Primary Care Physician: Carole Bearden MD - Patient Instructions Diet: Regular Diet as Tolerated Showering/Bathing: May Shower - Discharge Plan *PRESCRIPTION DRUG MONITORING PROGRAM REVIEWED*: Not Applicable *COPY OF PRESCRIPTION DRUG MONITORING REPORT IN PATIENT TRACY: Not Applicable Prescriptions/Med Rec: amLODIPine Besylate/Benazepril [Amlodipine-Benazepril 2.5-10] 1 each PO DAILY #30 capsule Home Medications: Home Meds amLODIPine Besylate/Benazepril [Amlodipine-Benazepril 2.5-10] 1 each PO DAILY #30 capsule 03/17/21 [Rx] Oxygen Therapy Mode: Room Air Referrals: Suma Doshi [employer]SEM[employer] [Nurse Practitioner] - 03/19/21 2:00 pm (Follow-up on MondayMarch 19 at 2:00 at [facility]) - Discharge Summary/Plan Comment DC Time >30 min.: Yes Total # of Minutes for Discharge Time: 35 - General Info Date of Service: 03/17/21 - Patient Data Vitals - Most Recent: Last Vital Signs Temp 98.3 F 03/17/21 07:00 Pulse 83 03/17/21 07:00 Resp 24 H 03/17/21 07:00 BP 157/94 H 03/17/21 07:00 Pulse Ox 96 03/17/21 07:00 Weight - Most Recent: 219 lb I&O - Last 24 hours: Intake & Output 03/16/21 03/17/21 03/17/21 22:59 06:59 14:59 Intake Total 100 150 Balance 100 150 Lab Results - Last 24 hrs: Laboratory Results - last 24 hr 03/16/21 03/16/21 03/16/21 Range/Units 14:00 14:12 14:12 WBC 22.04 H (5.00-10.00) 10^3/uL RBC 5.57 (4.50-6.00) 10^6/uL Hgb 16.8 (13.0-17.0) g/dL Hct 48.3 (40.0-52.0) % MCV 86.7 (82.0-92.0) fL MCH 30.2 (27.0-31.0) pg MCHC 34.8 (32.0-36.0) g/dL RDW 12.0 (11.5-14.5) % Plt Count 309 (150-400) 10^3/uL MPV 11.3 H (7.4-10.4) fL Immature Gran % (Auto) 0.4 (0.0-5.0) % Neut % (Auto) 85.0 H (50.0-70.0) % Lymph % (Auto) 6.8 L (20.0-40.0) % [place] % (Auto) 7.7 (2.0-8.0) % Eos % (Auto) 0.0 L (1.0-3.0) % Baso % (Auto) 0.1 (0.0-1.0) % Neut # (Auto) 18.75 H (2.50-7.00) 10^3/uL Lymph # (Auto) 1.49 (1.00-4.00) 10^3/uL [place] # (Auto) 1.69 H (0.10-0.80) 10^3/uL Eos # (Auto) 0.00 L (0.10-0.30) 10^3/uL Baso # (Auto) 0.03 (0.00-0.10) 10^3/uL Immature Gran # (Auto) 0.08 (0.00-0.50) 10^3/uL Sodium 135 L (136-145) mmol/L Potassium 3.9 (3.5-5.1) mmol/L Chloride 99 (98-107) mmol/L Carbon Dioxide 21.6 (21.0-32.0) mmol/L Anion Gap 18.3 H (5-15) mmol/L BUN 11 (7-18) mg/dL Creatinine 1.08 (0.51-1.17) mg/dL Est Cr Clr Drug Dosing 96.59 mL/min Estimated GFR (MDRD) > 60 mL/min Glucose 261 H (70-140) mg/dL Hemoglobin A1c (4.3-5.7) % Lactic Acid (0.4-2.0) mmol/L Calcium 8.6 L (8.7-10.3) mg/dL Total Bilirubin 0.7 (0.2-1.0) mg/dL AST 18 (15-37) U/L ALT 50 (14-63) U/L Alkaline Phosphatase 94 (46-116) U/L Troponin I High Sens 54.800 (0-76.000) pg/mL C-Reactive Protein 1.6 H (0.0-0.9) mg/dL B-Natriuretic Peptide (0-100) pg/mL Total Protein 8.7 H (6.4-8.2) g/dL Albumin 4.64 (3.40-5.00) g/dL Lipase 264 (73-393) U/L TSH, Ultra Sensitive (0.340-4.820) uIU/mL SARS CoV-2 RNA Rapid BOBBI (NEGATIVE) 03/16/21 03/16/21 03/16/21 Range/Units 14:12 14:12 14:58 WBC (5.00-10.00) 10^3/uL RBC (4.50-6.00) 10^6/uL Hgb (13.0-17.0) g/dL Hct (40.0-52.0) % MCV (82.0-92.0) fL MCH (27.0-31.0) pg MCHC (32.0-36.0) g/dL RDW (11.5-14.5) % Plt Count (150-400) 10^3/uL MPV (7.4-10.4) fL Immature Gran % (Auto) (0.0-5.0) % Neut % (Auto) (50.0-70.0) % Lymph % (Auto) (20.0-40.0) % [place] % (Auto) (2.0-8.0) % Eos % (Auto) (1.0-3.0) % Baso % (Auto) (0.0-1.0) % Neut # (Auto) (2.50-7.00) 10^3/uL Lymph # (Auto) (1.00-4.00) 10^3/uL [place] # (Auto) (0.10-0.80) 10^3/uL Eos # (Auto) (0.10-0.30) 10^3/uL Baso # (Auto) (0.00-0.10) 10^3/uL Immature Gran # (Auto) (0.00-0.50) 10^3/uL Sodium (136-145) mmol/L Potassium (3.5-5.1) mmol/L Chloride (98-107) mmol/L Carbon Dioxide (21.0-32.0) mmol/L Anion Gap (5-15) mmol/L BUN (7-18) mg/dL Creatinine (0.51-1.17) mg/dL Est Cr Clr Drug Dosing mL/min Estimated GFR (MDRD) mL/min Glucose (70-140) mg/dL Hemoglobin A1c (4.3-5.7) % Lactic Acid 4.8 H (0.4-2.0) mmol/L Calcium (8.7-10.3) mg/dL Total Bilirubin (0.2-1.0) mg/dL AST (15-37) U/L ALT (14-63) U/L Alkaline Phosphatase (46-116) U/L Troponin I High Sens (0-76.000) pg/mL C-Reactive Protein (0.0-0.9) mg/dL B-Natriuretic Peptide 48 (0-100) pg/mL Total Protein (6.4-8.2) g/dL Albumin (3.40-5.00) g/dL Lipase (73-393) U/L TSH, Ultra Sensitive 0.885 (0.340-4.820) uIU/mL SARS CoV-2 RNA Rapid BOBBI (NEGATIVE) 03/16/21 03/16/21 03/16/21 Range/Units 15:12 16:35 19:00 WBC (5.00-10.00) 10^3/uL RBC (4.50-6.00) 10^6/uL Hgb (13.0-17.0) g/dL Hct (40.0-52.0) % MCV (82.0-92.0) fL MCH (27.0-31.0) pg MCHC (32.0-36.0) g/dL RDW (11.5-14.5) % Plt Count (150-400) 10^3/uL MPV (7.4-10.4) fL Immature Gran % (Auto) (0.0-5.0) % Neut % (Auto) (50.0-70.0) % Lymph % (Auto) (20.0-40.0) % [place] % (Auto) (2.0-8.0) % Eos % (Auto) (1.0-3.0) % Baso % (Auto) (0.0-1.0) % Neut # (Auto) (2.50-7.00) 10^3/uL Lymph # (Auto) (1.00-4.00) 10^3/uL [place] # (Auto) (0.10-0.80) 10^3/uL Eos # (Auto) (0.10-0.30) 10^3/uL Baso # (Auto) (0.00-0.10) 10^3/uL Immature Gran # (Auto) (0.00-0.50) 10^3/uL Sodium (136-145) mmol/L Potassium (3.5-5.1) mmol/L Chloride (98-107) mmol/L Carbon Dioxide (21.0-32.0) mmol/L Anion Gap (5-15) mmol/L BUN (7-18) mg/dL Creatinine (0.51-1.17) mg/dL Est Cr Clr Drug Dosing mL/min Estimated GFR (MDRD) mL/min Glucose (70-140) mg/dL Hemoglobin A1c 5.5 (4.3-5.7) % Lactic Acid 1.8 (0.4-2.0) mmol/L Calcium (8.7-10.3) mg/dL Total Bilirubin (0.2-1.0) mg/dL AST (15-37) U/L ALT (14-63) U/L Alkaline Phosphatase (46-116) U/L Troponin I High Sens (0-76.000) pg/mL C-Reactive Protein (0.0-0.9) mg/dL B-Natriuretic Peptide (0-100) pg/mL Total Protein (6.4-8.2) g/dL Albumin (3.40-5.00) g/dL Lipase (73-393) U/L TSH, Ultra Sensitive (0.340-4.820) uIU/mL SARS CoV-2 RNA Rapid BOBBI Negative (NEGATIVE) 03/17/21 03/17/21 Range/Units 07:20 07:20 WBC 18.52 H (5.00-10.00) 10^3/uL RBC 5.31 (4.50-6.00) 10^6/uL Hgb 16.1 (13.0-17.0) g/dL Hct 47.2 (40.0-52.0) % MCV 88.9 (82.0-92.0) fL MCH 30.3 (27.0-31.0) pg MCHC 34.1 (32.0-36.0) g/dL RDW 12.5 (11.5-14.5) % Plt Count 224 D (150-400) 10^3/uL MPV 11.5 H (7.4-10.4) fL Immature Gran % (Auto) 0.3 (0.0-5.0) % Neut % (Auto) 78.9 H (50.0-70.0) % Lymph % (Auto) 11.2 L (20.0-40.0) % [place] % (Auto) 9.2 H (2.0-8.0) % Eos % (Auto) 0.2 L (1.0-3.0) % Baso % (Auto) 0.2 (0.0-1.0) % Neut # (Auto) 14.62 H (2.50-7.00) 10^3/uL Lymph # (Auto) 2.07 (1.00-4.00) 10^3/uL [place] # (Auto) 1.71 H (0.10-0.80) 10^3/uL Eos # (Auto) 0.03 L (0.10-0.30) 10^3/uL Baso # (Auto) 0.04 (0.00-0.10) 10^3/uL Immature Gran # (Auto) 0.05 (0.00-0.50) 10^3/uL Sodium 136 (136-145) mmol/L Potassium 4.2 (3.5-5.1) mmol/L Chloride 103 (98-107) mmol/L Carbon Dioxide 22.0 (21.0-32.0) mmol/L Anion Gap 15.2 H (5-15) mmol/L BUN 12 (7-18) mg/dL Creatinine 0.75 (0.51-1.17) mg/dL Est Cr Clr Drug Dosing 143.09 mL/min Estimated GFR (MDRD) > 60 mL/min Glucose 150 H (70-140) mg/dL Hemoglobin A1c (4.3-5.7) % Lactic Acid (0.4-2.0) mmol/L Calcium 8.5 L (8.7-10.3) mg/dL Total Bilirubin (0.2-1.0) mg/dL AST (15-37) U/L ALT (14-63) U/L Alkaline Phosphatase (46-116) U/L Troponin I High Sens (0-76.000) pg/mL C-Reactive Protein (0.0-0.9) mg/dL B-Natriuretic Peptide (0-100) pg/mL Total Protein (6.4-8.2) g/dL Albumin (3.40-5.00) g/dL Lipase (73-393) U/L TSH, Ultra Sensitive (0.340-4.820) uIU/mL SARS CoV-2 RNA Rapid BOBBI (NEGATIVE) Med Orders - Current: Current Medications Acetaminophen (Acetaminophen 325 Mg Tab) 650 mg PO Q4H PRN PRN Reason: Fever Last Admin: 03/16/21 22:32 Dose: 650 mg Documented by: Discontinued Medications Amlodipine Besylate (Amlodipine 2.5 Mg Tab) 2.5 mg PO ONETIME ONE Stop: 03/17/21 09:48 Benazepril HCl (Benazepril 10 Mg Tab) 10 mg PO ONETIME ONE Stop: 03/17/21 09:48 Hydralazine HCl (Hydralazine 20 Mg/Ml Sdv) 10 mg IVPUSH ONETIME ONE Stop: 03/16/21 14:49 Last Admin: 03/16/21 14:52 Dose: 10 mg Documented by: Sodium Chloride (Normal Saline) 1,000 mls @ 999 mls/hr IV .BOLUS ONE Stop: 03/16/21 16:33 Last Admin: 03/16/21 15:38 Dose: 999 mls/hr Documented by: Sodium Chloride (Normal Saline) 1,000 mls @ 150 mls/hr IV ASDIRECTED QUINTIN Last Admin: 03/16/21 18:31 Dose: 150 mls/hr Documented by: Labetalol HCl (Labetalol 100 Mg/20 Ml Mdv) 20 mg IVPUSH ONETIME ONE; Protocol Stop: 03/16/21 14:15 Last Admin: 03/16/21 14:28 Dose: 20 mg Documented by: Labetalol HCl (Labetalol 100 Mg/20 Ml Mdv) 20 mg IVPUSH ONETIME ONE; Protocol Stop: 03/16/21 15:34 Last Admin: 03/16/21 15:39 Dose: 20 mg Documented by: Labetalol HCl (Labetalol 100 Mg/20 Ml Mdv) 20 mg IVPUSH ONETIME ONE; Protocol Stop: 03/16/21 15:50 Last Admin: 03/16/21 16:04 Dose: 20 mg Documented by: Labetalol HCl (Labetalol 100 Mg/20 Ml Mdv) 20 mg IVPUSH ONETIME ONE; Protocol Stop: 03/16/21 16:20 Last Admin: 03/16/21 16:41 Dose: 20 mg Documented by: Labetalol HCl (Labetalol 100 Mg/20 Ml Mdv) 20 mg IVPUSH ONETIME ONE; Protocol Stop: 03/16/21 16:41 Last Admin: 03/16/21 17:26 Dose: Not Given Documented by:
[2021-03-17] MEDS: Acetaminophen 325 MG Tab PO PRN (14:32)
[2021-03-17 14:33] VITALS: BP 164/102; PULSE 89
== END 2021-03-17 15:14 | disposition home or self-care (01) ==
LOC: KA.ED 14:08 → KA.MS 16:51
PROVIDERS: ADMIT Family Medicine; ATTEND Family Medicine
DX: I10 Essential (primary) hypertension (principal); D35.00 Benign neoplasm of unspecified adrenal gland; D72.829 Elevated white blood cell count, unspecified; E87.2 Acidosis; Z20.822 Contact with and (suspected) exposure to COVID-19; Z79.899 Other long term (current) drug therapy
CPT/HCPCS: 36415; 71046; 80048; 80053; 82088; 83036; 83605; 83690; 83880; 84145; 84244; 84443; 84484; 85025; 86140; 87040; 96374; 96375; 96376; 99285-25; A9270-GY; G0378; J0360; J3490; J7030; U0002

== ENCOUNTER 2021-03-18 10:12 | Emergency (ER) | payer SELFPAY ==
[2021-03-18 11:01] LABS: ANION GAP 13.2 mmol/L (5-15); CHLORIDE,CL 101 mmol/L (98-107); SODIUM,NA 137 mmol/L (136-145)
--- NOTE | 2021-03-18 11:02 | EDM.PDOC ---
ED HPI GENERAL MEDICAL PROBLEM - General Chief Complaint: Cardiovascular Problem Stated Complaint: HIGH BLOOD PRESSURE Time Seen by Provider: 03/18/21 10:37 Source of Information: Reports: Patient History Limitations: Reports: No Limitations - History of Present Illness INITIAL COMMENTS - FREE TEXT/NARRATIVE: Patient presents emergency room for the chief complaint of sweating and mild headache. Patient woke up this morning for work at 6:00 this morning he had just very mild bilateral frontal headache and mild sweaty. Patient then got into the shower after that got dressed with new clothes on his way out of the house, he noticed he was sweating again and needed to change his shirt, he called off work and came to the ER. Patient has had no chest pain shortness of breath weakness fatigue or abdominal pain. Patient's headache has resolved after he took a couple Tylenol. Patient is not sweating more. - Related Data Allergies Allergy/AdvReac Type Severity Reaction Status Date / Time No Known Drug Allergies Allergy Other Verified 03/16/21 03:50 Home Meds: Home Meds amLODIPine Besylate/Benazepril [Amlodipine-Benazepril 2.5-10] 1 each PO DAILY #30 capsule 03/17/21 [Rx] Acetaminophen [Acetaminophen Extra Strength] 500 mg PO Q4H PRN 03/18/21 [History] Benazepril HCl 10 mg PO DAILY 03/18/21 [History] Omeprazole 20 mg PO DAILY 03/18/21 [History] Past Medical History - Past Health History Medical/Surgical History: Denies Medical/Surgical History - Infectious Disease History Infectious Disease History: Reports: None Social & Family History - Caffeine Use Caffeine Use: Reports: Coffee ED ROS GENERAL - Review of Systems Review Of Systems: See Below Constitutional: Reports: Diaphoresis HEENT: Reports: No Symptoms Respiratory: Reports: No Symptoms Cardiovascular: Reports: No Symptoms Endocrine: Reports: No Symptoms GI/Abdominal: Reports: No Symptoms Musculoskeletal: Reports: No Symptoms Neurological: Reports: Headache, Other (h/a prior, now resolved.) Psychiatric: Reports: No Symptoms Hematologic/Lymphatic: Reports: No Symptoms ED EXAM, GENERAL - Physical Exam Exam: See Below Exam Limited By: No Limitations General Appearance: Alert, WD/WN, No Apparent Distress Throat/Mouth: Normal Inspection, Normal Oropharynx Head: Atraumatic, Normocephalic Neck: Normal Inspection, Supple, Non-Tender Respiratory/Chest: No Respiratory Distress, Lungs Clear, Normal Breath Sounds, No Accessory Muscle Use, Chest Non-Tender Cardiovascular: Normal Peripheral Pulses, Regular Rate, Rhythm, No Edema, No Murmur Peripheral Pulses: 2+: Radial (L), Radial (R), Dorsalis Pedis (L), Dorsalis Pedis (R) GI/Abdominal: Normal Bowel Sounds, Soft, Non-Tender Back Exam: Normal Inspection, Full Range of Motion Extremities: Normal Inspection, Normal Range of Motion, Non-Tender, No Pedal Edema Neurological: Alert, Oriented, Normal Cognition Psychiatric: Normal Affect, Normal Mood Skin Exam: Warm, Intact, Diaphoretic #1 Interpretation EKG Date: 03/18/21 Time: 10:15 Rhythm: Other (sinus tach) Rate (Beats/Min): 108 [place]: Normal P-Wave: Present QRS: Normal ST-T: Normal QT: Normal Comparison: No Change Course - Vital Signs Last Recorded V/S: Last Vital Signs Temp Pulse 109 H 03/18/21 10:31 Resp 18 03/18/21 10:27 BP 125/86 03/18/21 10:31 Pulse Ox 98 03/18/21 10:27 - Orders/Labs/Meds Orders: Active Orders 24 hr Category Date Time Status BASIC METABOLIC PANEL,BMP [CHEM] Stat Lab 03/18/21 10:25 Received TROPONIN I HIGH SENSITIVITY [CHEM] Stat Lab 03/18/21 10:25 Received EKG 12 Lead [EK] Routine Ther 03/18/21 10:26 Ordered Labs: Laboratory Tests 03/18/21 Range/Units 10:25 WBC 17.21 H (5.00-10.00) 10^3/uL RBC 5.31 (4.50-6.00) 10^6/uL Hgb 16.1 (13.0-17.0) g/dL Hct 47.1 (40.0-52.0) % MCV 88.7 (82.0-92.0) fL MCH 30.3 (27.0-31.0) pg MCHC 34.2 (32.0-36.0) g/dL RDW 12.4 (11.5-14.5) % Plt Count 241 (150-400) 10^3/uL MPV 11.3 H (7.4-10.4) fL Immature Gran % (Auto) 0.1 (0.0-5.0) % Neut % (Auto) 80.6 H (50.0-70.0) % Lymph % (Auto) 10.9 L (20.0-40.0) % [place] % (Auto) 7.8 (2.0-8.0) % Eos % (Auto) 0.3 L (1.0-3.0) % Baso % (Auto) 0.3 (0.0-1.0) % Neut # (Auto) 13.85 H (2.50-7.00) 10^3/uL Lymph # (Auto) 1.88 (1.00-4.00) 10^3/uL [place] # (Auto) 1.35 H (0.10-0.80) 10^3/uL Eos # (Auto) 0.06 L (0.10-0.30) 10^3/uL Baso # (Auto) 0.06 (0.00-0.10) 10^3/uL Immature Gran # (Auto) 0.01 (0.00-0.50) 10^3/uL - Re-Assessments/Exams Free Text/Narrative Re-Assessment/Exam: 03/18/21 11:04 Patient presents for chief complaint of diaphoresis. This is his result he had a mild headache took Tylenol that is gone. He has no coronary symptoms at this time no chest pain or shortness of breath weakness fatigue or nausea. Patient's heart rates been in the upper 90s to low 100s throughout ED visit his blood pressure is normal 122/87. Respirations 26 SPO2 95. His blood cultures are no growth to date. All the rest of his labs are improving from previous his white count is trending down and a negative troponin and normal BMP. Departure - Departure Time of Disposition: 11:15 Disposition: Home, Self-Care 01 Condition: Good Clinical Impression: Diaphoresis Instructions: Hyperhidrosis Referrals: Stephanie Su MD [Primary Care Provider] - Forms: ED Department Discharge Additional Instructions: f/u with Willie in the clinic to discuss your symptoms. Sepsis Event Note (ED) - Focused Exam Vital Signs: Vital Signs Pulse Resp BP Pulse Ox 03/18/21 10:31 109 H 125/86 03/18/21 10:27 112 H 18 126/86 98 03/18/21 10:18 110 H 119/87 - My Orders Last 24 Hours: My Active Orders 03/18/21 10:25 BASIC METABOLIC PANEL,BMP [CHEM] Stat TROPONIN I HIGH SENSITIVITY [CHEM] Stat 03/18/21 10:26 EKG 12 Lead [EK] Routine - Assessment/Plan Last 24 Hours: My Active Orders 03/18/21 10:25 BASIC METABOLIC PANEL,BMP [CHEM] Stat TROPONIN I HIGH SENSITIVITY [CHEM] Stat 03/18/21 10:26 EKG 12 Lead [EK] Routine
== END 2021-03-18 11:30 | disposition home or self-care (01) ==
LOC: KA.ED 10:12
DX: R61 Generalized hyperhidrosis (principal); R00.0 Tachycardia, unspecified
CPT/HCPCS: 36415; 80048; 84484; 85025; 99284; 99284-25